=== PATIENT | male | born 2000 | race Caucasian/White ===

== ENCOUNTER 2023-05-12 19:57 | Emergency (ER) | payer OTHER ==
[~2023-05-12] VITALS: Ht 172.7 cm; Wt 63.5 kg
[2023-05-12 20:04] VITALS: BP 123/86; PULSE 99; RESP 18; TEMP 97.1; O2SAT 98
[2023-05-12 20:10] VITALS: BP 123/86; PULSE 99; RESP 18; TEMP 97.1; O2SAT 98
[2023-05-12] MEDS ORDERED: KETOROLAC 60 MG/2 ML VIAL IM ONE (20:20)
[2023-05-12] MEDS ORDERED: IBUP-2213 PO (20:24)
[2023-05-12] MEDS ORDERED: ACET-8905 PO (20:24)
== END 2023-05-12 20:50 | disposition home or self-care (01) ==
LOC: MED 19:57
DX: R51.9 Headache, unspecified (principal); Z79.899 Other long term (current) drug therapy
CPT/HCPCS: 96372; 99283; J1885